=== PATIENT | male | born 1980 | race Caucasian/White ===

== ENCOUNTER 2016-10-12 18:28 | Emergency (ER) | payer OTHER ==
--- NOTE | 2016-10-12 18:38 | ER Document Report ---
ED Medical Screen (RME) - General Stated Complaint: ABDOMINAL PAIN Time seen by provider: 18:34 Mode of Arrival: Wheelchair Information source: Patient Notes: 36-year-old male presents to ED for lower abdominal pain that has now progressed to generalized abdominal pain, he denies nausea vomiting or diarrhea. Patient also denies any fevers. The pain in his abdomen feels better after he urinates. states that when she went to pick him up from work he he was staring off into space with no response to her talking to a more touching him. No incontinence of urine or stool and no tremors noted when he did respond to her he was kind of as she says out of it. 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 I have greeted and performed a rapid initial assessment of this patient. A comprehensive ED assessment and evaluation of the patient, analysis of test results and completion of medical decision making process will be conducted by an additional ED providers. - Related Data Allergies/Adverse Reactions: No Known Allergies Allergy (Verified 10/12/16 18:32) Past Medical History Neurological Medical History: Reports: Hx Seizures - Immunizations Hx Diphtheria, Pertussis, Tetanus Vaccination: Yes Physical Exam - Vital signs Vitals: Temp Pulse Resp BP Pulse Ox 97.9 F 80 14 128/81 H 100 10/12/16 18:31 10/12/16 18:31 10/12/16 18:31 10/12/16 18:31 10/12/16 18:31 Course - Vital Signs Vital signs: Temp Pulse Resp BP Pulse Ox 97.9 F 80 14 128/81 H 100 10/12/16 18:31 10/12/16 18:31 10/12/16 18:31 10/12/16 18:31 10/12/16 18:31
[2016-10-12] MEDS ORDERED: OXYCODONE-ACETAMINOPHEN 5-325 MG TABLET PO ONE (18:39)
[2016-10-12 19:09] LABS: ABSOLUTE BASOPHILS # (AUTO) 0.1 10^3/uL (0.0-0.2); ABSOLUTE EOSINOPHILS # (AUTO) 0.6 10^3/uL (0.0-0.6); ABSOLUTE LYMPHOCYTES (AUTO) 2.1 10^3/uL (0.5-4.7); ABSOLUTE NEUT (AUTO) 4.7 10^3/uL (1.7-8.2); EOSINOPHILS % (AUTO) 7.1 % (0-6); HEMATOCRIT 44.1 % (37.9-51.0); HEMOGLOBIN 14.2 g/dL (13.5-17.0); HGB HCT DIFFERENCE -1.5; LYMPHOCYTES % (AUTO) 24.7 % (13-45); MEAN CORPUSCULAR HEMOGLOBIN 29.9 pg (27.0-33.4); MEAN CORPUSCULAR HGB CONC 32.2 g/dL (32.0-36.0); MEAN CORPUSCULAR VOLUME 93 fl (80-97); MONOCYTES % (AUTO) 12.2 % (3-13); RED BLOOD COUNT 4.75 10^6/uL (4.35-5.55); WHITE BLOOD COUNT 8.5 10^3/uL (4.0-10.5)
[2016-10-12 19:13] LABS: APPEARANCE,URINE CLEAR; BILIRUBIN,URINE NEGATIVE (NEGATIVE); GLUCOSE, URINE NEGATIVE (NEGATIVE); KETONES,URINE NEGATIVE (NEGATIVE); LEUKOCYTE ESTERASE,URINE NEGATIVE (NEGATIVE); NITRITE,URINE NEGATIVE (NEGATIVE); PROTEIN,URINE NEGATIVE (NEGATIVE); URINE SPECIFIC GRAVITY 1.003; UROBILINOGEN,URINE NEGATIVE mg/dL (<2.0)
[2016-10-12 19:32] LABS: ALANINE AMINOTRANSFERASE 28 U/L (21-72); ALKALINE PHOSPHATASE 92 U/L (38-126); ANION GAP 12 (5-19); ASPARTATE AMINO TRANSFERASE 20 U/L (17-59); BILIRUBIN,TOTAL 0.8 mg/dL (0.2-1.3); BLOOD UREA NITROGEN 10 mg/dL (7-20); CALCIUM 10.1 mg/dL (8.4-10.2); CARBON DIOXIDE 29 mmol/L (22-30); CHLORIDE 103 mmol/L (98-107); CREATININE RESULT 0.91 mg/dL (0.52-1.25); GLUCOSE 97 mg/dL (75-110); POTASSIUM 4.4 mmol/L (3.6-5.0); SODIUM 143.7 mmol/L (137-145); TOTAL PROTEIN 8.2 g/dL (6.3-8.2)
--- NOTE | 2016-10-12 22:49 | ER Document Report ---
ED GI/ - General Chief Complaint: Abdominal Pain Stated Complaint: ABDOMINAL PAIN Mode of Arrival: Wheelchair Information source: Patient, Relative Notes: 36-year-old male presents to the emergency department complaining of lower abdominal/pelvic pain over the last 3 days. Patient reports was working out/ lifting weights 3 days ago when he felt a sudden pain to his bilateral lower pelvic/groin area. Reports pain has been intermittently persistent since then but bulging has resolved. Denies dysuria and states pain improves after urination. Reports has noticed small intermittent bulging of bilateral lower pelvic area. Denies scrotal swelling or testicular pain, hematuria, penile discharge, fever, nausea or vomiting, constipation or diarrhea, or blood in stool. Patient reports had hernia repair as an infant. Patient also states may have had an absence seizure today which he has a history of and are not unusual for him to have. TRAVEL OUTSIDE OF THE [place] IN LAST 30 DAYS: No - HPI Patient complains to provider of: Abdominal pain, Groin pain Timing/Duration: Intermittent, Persistent Quality of pain: Achy Severity at maximum: Moderate Severity in ED: Almost gone Pain Level: 2 Location: Suprapubic Sexual history: Active. denies: New partner, Unprotected intercourse, STD exposure Similar symptoms previously: Yes Recently seen / treated by doctor: No - Related Data Allergies/Adverse Reactions: No Known Allergies Allergy (Verified 10/12/16 18:32) Past Medical History - General Information source: Patient - Social History Smoking Status: Never Smoker Chew tobacco use (# tins/day): No Frequency of alcohol use: None Drug Abuse: None Lives with: Family Family History: Reviewed & Not Pertinent Patient has suicidal ideation: No Patient has homicidal ideation: No Neurological Medical History: Reports: Hx Seizures Renal/ Medical History: Denies: Hx Peritoneal Dialysis Past Surgical History: Reports: Hx Herniorrhaphy - Immunizations Hx Diphtheria, Pertussis, Tetanus Vaccination: Yes Review of Systems - Review of Systems Constitutional: No symptoms reported EENT: No symptoms reported Cardiovascular: No symptoms reported Respiratory: No symptoms reported Gastrointestinal: See HPI Genitourinary: See HPI Male Genitourinary: No symptoms reported Musculoskeletal: No symptoms reported Skin: No symptoms reported Hematologic/Lymphatic: No symptoms reported Neurological/Psychological: No symptoms reported -: Yes All other systems reviewed and negative Physical Exam - Vital signs Vitals: Temp Pulse Resp BP Pulse Ox 97.9 F 80 14 128/81 H 100 10/12/16 18:31 10/12/16 18:31 10/12/16 18:31 10/12/16 18:31 10/12/16 18:31 Interpretation: Normal - General General appearance: Appears well, Alert - HEENT Head: Normocephalic, Atraumatic Eyes: Normal Pupils: PERRL - Respiratory Respiratory status: No respiratory distress Chest status: Nontender Breath sounds: Normal Chest palpation: Normal - Cardiovascular Rhythm: Regular Heart sounds: Normal auscultation Murmur: No Pulses: Normal: Radial Normal capillary refill: Yes - Abdominal Inspection: Normal, Other - Patient has bilateral non-incarcerated or strangulated inguinal hernias R>L. Distension: No distension Bowel sounds: Normal Tenderness: Nontender Organomegaly: No organomegaly - Genitourinary Inspection: Normal. No: Blood at meatus, Penile discharge Tenderness: Nontender. No: Lesions, Testicle tender, Epididymis tender Cremasteric reflex: Normal Scrotum: Normal. No: Swelling, Redness, Hot to touch - Back Back: Normal, Nontender - Extremities General upper extremity: Normal inspection, Nontender, Normal color, Normal ROM , Normal temperature General lower extremity: Normal inspection, Nontender, Normal color, Normal ROM , Normal temperature, Normal weight bearing. No: Houston's sign - Neurological Neuro grossly intact: Yes Cognition: Normal Orientation: AAOx4 Joselito Coma Scale Eye Opening: Spontaneous Joselito Coma Scale Verbal: Oriented Joselito Coma Scale Motor: Obeys Commands [place] Coma Scale Total: 15 Speech: Normal Motor strength normal: LUE, RUE, LLE, RLE Sensory: Normal - Psychological Associated symptoms: Normal affect, Normal mood - Skin Skin Temperature: Warm Skin Moisture: Dry Skin Color: Normal Skin Turgor: Elastic Course - Re-evaluation Re-evalutation: 10/12/16 23:00 Patient hemodynamically stable, in no distress, afebrile. On physical exam patient has bilateral uncomplicated inguinal hernias with no skin changes, peritonitis, incarceration, or strangulation at this time. Ultrasound was done which did not show any hernia in scrotal area, torsion, epididymitis or any other emergent findings aside from varicocele. Patient appears stable for discharge and agrees with home care, follow-up with surgical clinic, ED return precautions. Patient presentation, finding, ED care, and plan were discussed with ED physician Dr. Loja who concurs with evaluation and treatment plan. - Vital Signs Vital signs: Temp Pulse Resp BP Pulse Ox 97.9 F 80 14 128/81 H 100 10/12/16 18:31 10/12/16 18:31 10/12/16 18:31 10/12/16 18:31 10/12/16 18:31 - Laboratory Result Diagrams: 10/12/16 18:49 10/12/16 18:49 Laboratory results interpreted by me: 10/12/16 18:49 Eosinophils % 7.1 H - Diagnostic Test Radiology reviewed: Image reviewed, Reports reviewed Discharge - Discharge Clinical Impression: Inguinal hernia Qualifiers: Obstruction and gangrene presence: without obstruction or gangrene Laterality: bilateral Recurrence: not specified as recurrent Qualified Code(s): K40.20 - Bilateral inguinal hernia, without obstruction or gangrene, not specified as recurrent Condition: Stable Disposition: HOME, SELF-CARE Instructions: Hernia (OM), Observation for Appendicitis ([facility]) Additional Instructions: Follow-up with surgical clinic tomorrow. Return to the Emergency Department for any worsening symptoms or concerns. Prescriptions: Naproxen [Naprosyn 375 Mg Tablet] 375 mg PO BIDP PRN #10 tablet PRN Reason: Forms: Elevated Blood Pressure, Return to Work Referrals: RADHA LOJA MD [Primary Care Provider] - Follow up tomorrow [facility] [Provider Group] - Follow up tomorrow
[2016-10-12 23:06] VITALS: BP 112/79
== END 2016-10-12 22:57 | disposition home or self-care (01) ==
LOC: ER 18:28
DX: K40.20 Bilateral inguinal hernia, without obstruction or gangrene, not specified as recurrent (principal); R10.30 Lower abdominal pain, unspecified; R10.2 Pelvic and perineal pain
CPT/HCPCS: 36415; 76870; 80053; 81001; 85025; 93976; 99284